=== PATIENT | male | born 1970 | race Caucasian/White ===

== ENCOUNTER 2017-08-07 07:07 | Day surgery (SDC) | payer MEDICARE, OTHER ==
[2017-08-05 15:11] LABS: BASOPHILS % (AUTO) 0.4 % (0-1); EOSINOPHILS # (AUTO) 0.3 X10'3 (0-0.9); EOSINOPHILS % (AUTO) 4.1 % (0-6); LYMPHOCYTES # (AUTO) 2.5 X10'3 (1.1-4.8); LYMPHOCYTES % (AUTO) 39.7 % (21-51); MEAN CORPUSCULAR HGB CONC 34.1 % (33.0-36.5); MEAN PLATELET VOLUME 8.2 FL (7.4-10.4); MONOCYTES # (AUTO) 0.5 X10'3 (0-0.9); MONOCYTES % (AUTO) 8.3 % (2-12); NEUTROPHILS % (AUTO) 47.5 % (42-75); PRE OP HEMATOCRIT 37.9 % (42.0-52.0); PRE OP HEMOGLOBIN 12.9 g/dL (14.0-17.9); PRE OP PLATELET COUNT 208 X10'3 (140-440); RED BLOOD COUNT 4.16 X10'6 (4.70-6.10); RED CELL DISTRIBUTION WIDTH 16.5 % (11.5-14.5)
[2017-08-05 15:27] LABS: ALBUMIN 3.6 G/DL (3.4-5.0); ALBUMIN/GLOBULIN RATIO 1.1 (1.1-1.5); ALKALINE PHOSPHATASE 81 IU/L (46-116); BLOOD UREA NITROGEN 15 MG/DL (7-18); BUN/CREATININE RATIO 17.4 (5.4-32.0); CALCIUM 9.1 MG/DL (8.5-10.1); CHLORIDE 107 MMOL/L (99-107); CREATININE 0.86 MG/DL (0.60-1.10); PRE OP ALT 20 U/L (30-65); PRE OP ANION GAP 9 (8-16); PRE OP AST 15 U/L (10-37); PRE OP BILIRUB, TOTAL 0.2 MG/DL (0.0-1.0); PRE OP GLUCOSE 117 MG/DL (70-104); PRE OP POTASSIUM 4.2 MMOL/L (3.4-5.1); PRE OP SODIUM 143 MMOL/L (135-145); TOTAL CARBON DIOXIDE 27.4 MMOL/L (24-32); TOTAL PROTEIN 6.9 G/DL (6.4-8.2); eGFR > 90 ML/MIN
[~2017-08-07] VITALS: Ht 200.7 cm; Wt 112.2 kg
[~2017-08-07 07:07] MED LIST: ACET-812 PO; BACL10TA PO; BUPIVAcaine/PF 2.5 mg/ml (0.25%) 30ml vial ONE; FLUO20CA39 PO; GABA-534 PO; GABA800T2 PO; MORP60TA66 PO; QUET-1 PO; famotidine 20mg tablet PO ONE; ringers solution, lacted 1,000 ML IV SCH
[2017-08-07] MEDS ORDERED: LIDOcaine 0.5% (5mg/ml) 50ml vial ONE (07:56)
[2017-08-07] MEDS ORDERED: ROPIVAcaine 0.5% (5mg/ml) 30ml vial ONE (07:56)
[2017-08-07] MEDS ORDERED: ceFAZolin 2gm in dextrose, iso 100 ML IV SCH (08:00)
[2017-08-07 08:16] VITALS: BP 135/87
[2017-08-07 08:27] VITALS: BP 135/87
[2017-08-07] MEDS ORDERED: ringers solution, lacted 1,000 ML IV SCH (08:32)
[2017-08-07] MEDS ORDERED: ondansetron/PF 4mg/2ml inj IV PRN (08:35)
[2017-08-07] MEDS ORDERED: hydrALAZINE 20mg/ml inj. IV PRN (08:35)
[2017-08-07] MEDS ORDERED: labetalol 5mg/ml 20ml inj. IV PRN (08:35)
[2017-08-07] MEDS ORDERED: morphine 4 MG/ML inj SYRINge IV PRN ×2 (08:35)
[2017-08-07] MEDS ORDERED: MIDAZolam 5mg/5ml vial ONE (09:04)
[2017-08-07] MEDS ORDERED: fentaNYL /PF 50mcg/ml 5ml ampule ONE (09:05)
[2017-08-07 10:20] VITALS: BP 125/92
[2017-08-07 10:30] VITALS: BP 119/83
[2017-08-07 10:40] VITALS: BP 121/79
[2017-08-07 10:50] VITALS: BP 116/77
== END 2017-08-07 10:50 | disposition home or self-care (01) ==
LOC: PAS 07:07
PROVIDERS: ATTEND Orthopaedic Surgery Hand Surgery
DX: M18.11 Unilateral primary osteoarthritis of first carpometacarpal joint, right hand (principal); M25.741 Osteophyte, right hand; G47.33 Obstructive sleep apnea (adult) (pediatric); I25.2 Old myocardial infarction; G89.29 Other chronic pain; F32.9 Major depressive disorder, single episode, unspecified; Z88.2 Allergy status to sulfonamides; Z98.890 Other specified postprocedural states; Z72.89 Other problems related to lifestyle; Z79.82 Long term (current) use of aspirin; Z79.899 Other long term (current) drug therapy
CPT/HCPCS: 25445; 36415; 80053; 85025; 93005; A6222; A6449; J0690; J2001; J2250; J2795; J3010; J3490; J7120; L8630; A7000